=== PATIENT | female | born 1975 | race Caucasian/White ===

== ENCOUNTER 2018-06-17 16:22 | Emergency (ER) | payer OTHER, MEDICAID ==
[~2018-06-17] VITALS: Ht 154.9 cm; Wt 68.5 kg
[~2018-06-17 16:22] MED LIST: BUSPIRONE HCL10 MG PO; DOLOPHINE HCL10 MG PO; KEFLEX500 MG PO; LASIX 40 MG TAB40 M2 PO; NORCO 5-325 TA1 EACH PO; OXYCONTIN10 M1 PO; PHENERGAN 25 MG25 M1 PO; POTASSIUM20 PO; SERTRALINE HCL50 MG PO; TRINATE TABLET1 EACH PO; XANAX 0.25 MG0.25 MG PO
[2018-06-17] MEDS ORDERED: SERTRALINE HCL50 MG PO (16:41)
[2018-06-17] MEDS ORDERED: BUPRENORPHINE HC2 MG PO (16:42)
[2018-06-17 19:08] LABS: ABSOLUTE BASOPHILS 0.1 thou/uL (0.0-0.2); ABSOLUTE EOSINOPHILS 0.2 thou/uL (0.0-0.7); ABSOLUTE LYMPHOCYTES 3.7 thou/uL (0.8-5.3); ABSOLUTE MONOCYTES 0.7 thou/uL (0.0-1.2); ABSOLUTE NEUTROPHILS 6.1 thou/uL (1.6-8.1); BASOPHILS 0.7 %; EOSINOPHILS 2.1 %; HEMATOCRIT 39.9 % (37.0-47.0); HEMOGLOBIN 13.3 gm/dL (12.0-15.0); LYMPHOCYTES 34.6 %; MCH 29.9 pg (26.0-34.0); MCHC 33.5 g/dL (28.0-37.0); MCV 89.4 fL (80.0-100.0); MONOCYTES 6.1 %; MPV 7.7 fl. (7.2-11.1); NUCLEATED RBCS 0 /100WBC; PLATELET COUNT* 183 thou/uL (150-400); POLYS 56.5 %; RBC 4.46 mil/uL (4.20-5.00); RDW-CV 14.1 % (10.5-14.5); WBC 10.7 thou/uL (4.0-11.0)
[2018-06-17 19:15] LABS: CALCIUM 8.8 mg/dL (8.5-10.1); CREATININE 0.6 mg/dL (0.6-1.3)
[2018-06-17 19:20] LABS: ALBUMIN 3.8 g/dL (3.4-5.0); TOTAL BILIRUBIN 0.3 mg/dL (<0.1-1.0); TOTAL PROTEIN 7.9 g/dL (6.4-8.2)
[2018-06-17 19:30] VITALS: BP 110/70
== END 2018-06-17 19:33 | disposition home or self-care (01) ==
LOC: M.ERS 16:22
PROVIDERS: Physician Assistant Surgical
DX: R29.818 Other symptoms and signs involving the nervous system (principal); G89.29 Other chronic pain; M54.2 Cervicalgia; M54.9 Dorsalgia, unspecified; F32.9 Major depressive disorder, single episode, unspecified; M19.90 Unspecified osteoarthritis, unspecified site; M79.7 Fibromyalgia; F17.210 Nicotine dependence, cigarettes, uncomplicated; Z86.19 Personal history of other infectious and parasitic diseases; Z88.2 Allergy status to sulfonamides

== ENCOUNTER 2021-07-09 09:51 | Emergency (ER) | payer OTHER ==
[~2021-07-09] VITALS: Ht 152.4 cm; Wt 63.5 kg
[~2021-07-09 09:51] MED LIST changes: +BUPRENORPHINE HC2 MG PO
--- NOTE | 2021-07-09 10:25 | EKG ---
[place] [address] ELECTROCARDIOGRAM REPORT Name: KAUSHIK POOLE Room: [facility].#: [id number] Admission: Attend Phys: Discharge: Date of : 77 Date of Service: 07/09/21 [facility] Report #: [id number] THIS REPORT FOR: //name// [facility] ED Test Date: 2021-07-09 Test Time: 10:07:00 Pat Name: KAUSHIK POOLE Department: Room: Gender: F Director [employer]: : 1975 Requested By: Keenan Husain Order Number: [id number] MD: Pablito Proctor Measurements Intervals [place] Rate: 57 P: 83 CA: 113 QRS: 87 QRSD: 87 T: 83 QT: 447 QTc: 436 Interpretive Statements Sinus rhythm poor r wave progression Borderline short CA interval Compared to ECG 08/27/2015 14:29:28 rate has slowed Electronically Signed On 07-09-2021 10:24:52 CDT by Pablito Proctor [email or web address] <ELECTRONICALLY SIGNED> By: Pablito Proctor MD, [facility] 07/09/21 [facility] 1007 1007 Pablito Proctor MD, FACC /EPI
[2021-07-09 10:30] LABS: ABSOLUTE LYMPHOCYTES 2.1 thou/uL (0.8-5.3); ABSOLUTE MONOCYTES 0.4 thou/uL (0.0-1.2); ABSOLUTE NEUTROPHILS 6.6 thou/uL (1.6-8.1); BASOPHILS 0.5 %; EOSINOPHILS 0.2 %; HEMATOCRIT 45.6 % (37.0-47.0); HEMOGLOBIN 14.7 gm/dL (12.0-15.0); LYMPHOCYTES 22.4 %; MCH 28.2 pg (26.0-34.0); MCHC 32.2 g/dL (28.0-37.0); MCV 87.6 fL (80.0-100.0); MONOCYTES 4.9 %; MPV 8.6 fl. (7.2-11.1); NUCLEATED RBCS 0 /100WBC; PLATELET COUNT* 215 thou/uL (150-400); RBC 5.21 mil/uL (4.20-5.00); RDW-CV 14.7 % (10.5-14.5); WBC 9.2 thou/uL (4.0-11.0)
[2021-07-09 11:02] LABS: URINE BLOOD TRACE (Negative); URINE CLARITY CLEAR; URINE COLOR YELLOW; URINE GLUCOSE-RANDOM NEGATIVE (Negative); URINE LEUKOCYTES-REFLEX NEGATIVE (Negative); URINE NITRITE-REFLEX NEGATIVE (Negative); URINE PROTEIN 1+ (Negative); URINE SPECIFIC GRAVITY >= 1.030 (1.005-1.030); URINE UROBILINOGEN 0.2 E.U./dl (0.2-1.0)
[2021-07-09 11:04] LABS: URINE BILIRUBIN 2+ (Negative); URINE KETONES 3+ (Negative)
[2021-07-09 11:05] LABS: ACETEST (KETONE CONFIRMATORY) Large (Negative); ICTOTEST (BILI CONFIRMATORY) Negative (Negative)
[2021-07-09 11:08] LABS: AMP/METHAMP POSITIVE (Negative); BENZODIAZEPINES Negative (Negative); COCAINE Negative (Negative); METHADONE Negative (Negative); OPIATES POSITIVE (Negative); PCP Negative (Negative); THC Negative (Negative)
[2021-07-09 11:44] LABS: BARBITURATES Negative (Negative)
[2021-07-09 12:28] LABS: ALBUMIN 4.1 g/dL (3.4-5.0); CALCIUM 9.4 mg/dL (8.5-10.1); CREATININE 0.7 mg/dL (0.6-1.3); POTASSIUM 3.7 mmol/L (3.5-5.1); TOTAL BILIRUBIN 0.7 mg/dL (<0.1-1.0)
[2021-07-09] MEDS ORDERED: ZOFRAN ODT4 MG DISSOLVE (12:42)
[2021-07-09] MEDS ORDERED: NEURONTIN 400400 M1 PO (12:42)
[2021-07-09 12:53] VITALS: BP 127/76
== END 2021-07-09 12:54 | disposition home or self-care (01) ==
LOC: M.ERS 09:51
PROVIDERS: Emergency Medicine Emergency Medical Services
DX: F32.9 Major depressive disorder, single episode, unspecified (principal); Z20.822 Contact with and (suspected) exposure to COVID-19; K52.9 Noninfective gastroenteritis and colitis, unspecified; M19.90 Unspecified osteoarthritis, unspecified site; F20.9 Schizophrenia, unspecified; F17.210 Nicotine dependence, cigarettes, uncomplicated; Z88.2 Allergy status to sulfonamides

== ENCOUNTER 2021-07-13 13:47 | Emergency (ER) | payer OTHER ==
[~2021-07-13] VITALS: Ht 152.4 cm; Wt 59.0 kg
[~2021-07-13 13:47] MED LIST changes: +NEURONTIN 400400 M1 PO; +ZOFRAN ODT4 MG DISSOLVE
[2021-07-13 14:10] VITALS: BP 166/100
== END 2021-07-13 14:10 | disposition home or self-care (01) ==
LOC: M.ERS 13:47
DX: K64.4 Residual hemorrhoidal skin tags (principal); K64.8 Other hemorrhoids; R10.13 Epigastric pain; R11.2 Nausea with vomiting, unspecified; F32.9 Major depressive disorder, single episode, unspecified; F20.9 Schizophrenia, unspecified; M79.7 Fibromyalgia; M19.90 Unspecified osteoarthritis, unspecified site; Z79.899 Other long term (current) drug therapy; Z88.2 Allergy status to sulfonamides